=== PATIENT | female | born 1945 | race Two or more races ===

== ENCOUNTER 2025-02-16 11:41 | Emergency (ER) | payer MEDICARE, MEDICAID ==
[~2025-02-16] VITALS: Ht 160 cm; Wt 63.7 kg
--- NOTE | 2025-02-16 12:22 | ED.PDOC ---
Musculoskeletal HPI Comments HPI: Poor Historian. 79-year-old female presents to emergency department by ambulance from home for evaluation of acute and chronic knee pain. Patient has chronic bilateral knee pain. Patient today while doing house chores she has a sudden left knee pain and was unable to ambulate secondary to pain. Denies any fall or trauma or injury today. Denies any other focal neurological deficits. Past Medical History: HTN, Anxiety Past Surgical History: Denies REVIEW OF SYSTEMS: CONSTITUTIONAL: Denies acute: fever, diaphoresis, chills, generalized weakness. HEAD: Denies acute: headache, photophobia Eyes: Denies acute: Double vision, vision loss, eye pain, eye discharge. EARS: Denies acute: tinnitus, hearing loss, ear discharge, ear pain, THROAT: Denies acute: sore throat, swelling, difficulty swallowing , pain with swallowing, change in voice. NECK: Denies acute: neck pain, neck swelling, stiff neck. HEART: Denies acute : chest pain, palpitations, LUNGS: Denies acute: SOB, wheezing, cough, hemoptysis ABDOMEN: Denies acute: abdominal pain, Nausea, Vomiting, diarrhea, melena , hematemesis, hematochezia SKIN: Denies acute: rash, redness, lesions, itchiness. EXTREMITIES: Denies acute: calf pain, numbness, tingling, weakness, Denies acute: Low back pain. Neuro: Denies acute: focal neurological deficit, motor or sensory focal neurological deficit, tremors, seizure like activity, confusion, dizziness, change in mental status, loss of bowel or bladder function, cauda equina like symptoms. : Denies acute: dysuria, hematuria, flank pain, increase in urinary frequency. PSYCH: Denies acute: hallucination, suicidal ideation, homicidal ideation. FEMALE: Denies acute: abnormal vaginal bleeding, foul odor, unusual discharge. PHYSICAL EXAM: General: no acute distress, awake and alert. Head: normocephalic, atraumatic. Neck: supple, trachea is midline, no swelling. Throat: Normal phonation. Eyes:, no erythema, no purulent discharge, no proptosis, no icterus. Heart: regular rate, regular rhythm, no significant murmur appreciated. Lungs: no apparent respiratory distress, Able to speak in full sentences. No wheezing, no rhonchi, no crackles. No stridors Clear to auscultation bilaterally. Abdomen: non tender to palpation, non distended, soft, no guarding, no rebound, + bowel sounds. Neuro: Awake, Alert, oriented to name, self, situation, follows commands GCS=15. Speech is normal. Skin: no petechia, no purpura, no cyanosis, non-pale, not jaundice. Lower extremities: --no - Pitting edema no deformity, no focal swelling, no calf TTP. Evaluation of the left knee of the area of complaint. There is noted baseline swelling that patient states that is normal for her. Patient has limited range of motion of the left knee secondary to pain. Patient is neurovascularly intact in the affected extremity. Makes eye contact. moves all four extremities. Face: no apparent facial droop. ED COURSE: Chief Complaint: Lower Extremity Time Seen by MD: 12:21 Reviewed Notes: Nurses Notes, Medications, Allergies Allergies: Coded Allergies: NO KNOWN ALLERGIES (Unverified , 02/16/25) Information Source: Patient, Emergency Med Personnel Mode of Arrival: EMS Location: Left Was a procedure done? Was a procedure done?: No Differential Diagnosis EXT Differential Diagnosis: Cellulitis, CHF, Deep Vein Thrombosis, Compartment Syndrome, Fracture, Sprain, Dislocation, Laceration, Gout, DJD, Myocardial Infarction, Contusion, Strain, Rheumatoid, Septic, Hernia, Neurovascular injury, Arthritis, Bursitis, Other (Joint effusion) X-Ray, Labs, Meds, VS Vital Signs Date Time Temp Pulse Resp B/P (MAP) Pulse Ox O2 Delivery O2 Flow Rate FiO2 02/16/25 15:39 97.6 63 16 122/83 (96) 97 97.6 02/16/25 12:45 63 16 97 Room Air* 0 21 02/16/25 12:45 98.1 63 16 143/83 (103) 97 98.1 02/16/25 11:46 98.6 86 16 112/86 (95) 100 98.6 Current Medications Medications (Trade) Dose Ordered Sig/Katey Route Start Time Stop Time Status Last Admin Acetaminophen/ Hydrocodone Bitart ([facility] 5/325MG Tab) 1 tab ONCE ONCE PO 02/16/25 13:30 02/16/25 13:31 DC 02/16/25 13:30 PATIENT: TITUS BENTONACCT: [id number]: [id number] : 1945 LOC: ER ROOM / BED: / AGE / SEX: 79 / F ADM STATUS: REG ER SERVICE 1222 ORDERING PHYSICIAN: MALA CALDERON DO PROCEDURE(s): LKNE4 - L KNEE 4V XRAY REASON: ORDER NUMBER(s): [id number], ACCESSION NUMBER(s): [id number] EXAM: XY L KNEE 4V XRAY CLINICAL INDICATION: pain TECHNIQUE: XY L KNEE 4V XRAY Comparison: None FINDINGS/IMPRESSION: There is no evidence of acute fracture or dislocation. Moderate tricompartmental joint space narrowing. Chondrocalcinosis. The alignment is anatomical. There is no radiopaque foreign body. ATED BY: REN SOW MD DICTATED DATE/TIME: 02/16/25 1303 SIGNED BY: REN SOW MD SIGNED DATE/TIME: 02/16/25 1303 Time of 1ST Reevaluation: 12:52 Reevaluation 1ST: Unchanged Patient Education/Counseling: Diagnosis, Treatment Family Education/Counseling: No Family Present Comments Patient presented with the above HPI.--knee pain----workup was initiated. patient was found with the above mentioned diagnosis. the following medications were ordered: please refer to order lists of meds and tests obtained by myself Dr. Calderon. Patient ED course and VS have been stabilized. Patient has been reassessed in the ED and remained in a stable condition. Pertinent incidental findings were discussed with the patient and/or family. Patient/family voices understanding and is agreeable with plan. Patient has been observed in the ED adequate length of time to insure improvement/stability. Escalation of care considered: Consideration of escalation to observation or admission Patient was DISCHARGED home in a stable condition. All the reports of any imaging studies that were ordered by myself were reviewed by myself. Departure 1 Departure Time of Disposition: 14:53 Impression: Primary Impression: Left knee pain Disposition: 01 HOME / SELF CARE / HOMELESS Condition: Stable Additional Instructions: Additional discharge instructions: You MUST follow-up with your primary care/family doctor in 1 to 2 days. If you are unable to see your primary care/family doctor, please return to our emergency room for re-assessment and re-evaluation in 1 to 2 days. Return to the emergency room here in our facility or to the nearest ER [facility] if your symptoms change or worsen. CONSULTATIONS: you MUST Follow-up for consultation as soon as possible with: -orthopedic doctor in 1-2 days. Please call for appointment You MUST call the consultants office yourself to make an appointment. You may need to arrange that through your insurance and/or your primary/family doctor. If you are unable to see the research consultant in 1 to 2 days, you must return to our emergency room (or any other ER of your choice) for re-assessment and re- evaluation. Adequate fluid hydration. Below is a copy of your radiological report for follow up: PATIENT: TITUS BENTON ACCT: [id number] UNIT: [id number] : 1945 LOC: ER ROOM / BED: / AGE / SEX: 79 / F ADM STATUS: REG ER SERVICE 1222 ORDERING PHYSICIAN: MALA CALDERON DO PROCEDURE(s): LKNE4 - L KNEE 4V XRAY REASON: ORDER NUMBER(s): [id number], ACCESSION NUMBER(s): [id number] EXAM: XY L KNEE 4V XRAY CLINICAL INDICATION: pain TECHNIQUE: XY L KNEE 4V XRAY Comparison: None FINDINGS/IMPRESSION: There is no evidence of acute fracture or dislocation. Moderate tricompartmental joint space narrowing. Chondrocalcinosis. The alignment is anatomical. There is no radiopaque foreign body. ATED BY: REN SOW MD DICTATED DATE/TIME: 02/16/25 1303 SIGNED BY: REN SOW MD SIGNED DATE/TIME: 02/16/25 1303 Discharged With: Self Critical Care Note Critical Care Time?: No I personally scribed for MALA CALDERON DO ([email or web address]) on 02/16/25 at 12:22. Electronically submitted by Abrahan Kilgore ([email or web address]). I personally scribed for MALA CALDERON DO ([email or web address]) on 02/16/25 at 13:14. Electronically submitted by Abrahan Kilgore ([email or web address]). I personally scribed for MALA CALDERON DO ([email or web address]) on 02/16/25 at 15:17. Electronically submitted by Abrahan Kilgore ([email or web address]). I personally scribed for MALA CALDERON DO ([email or web address]) on 02/16/25 at 15:26. Electronically submitted by Abrahan Kilgore ([email or web address]). MALA CALDERON DO Feb 16, 2025 12:22
[2025-02-16 12:45] VITALS: PULSE 63; RESP 16; O2SAT 97
--- NOTE | 2025-02-16 13:05 | DVH ---
EXAM: XY L KNEE 4V XRAY CLINICAL INDICATION: pain TECHNIQUE: XY L KNEE 4V XRAY Comparison: None FINDINGS/IMPRESSION: There is no evidence of acute fracture or dislocation. Moderate tricompartmental joint space narrowing. Chondrocalcinosis. The alignment is anatomical. There is no radiopaque foreign body.
[2025-02-16] MEDS: HYDROcodone-ACET 5/325MG TAB PO ONE (13:30)
[2025-02-16 15:39] VITALS: BP 122/83; PULSE 63; RESP 16; TEMP 97.6; O2SAT 97
== END 2025-02-16 15:39 | disposition home or self-care (01) ==
LOC: EDBD 11:41 → ER 11:46
DX: M25.562 Pain in left knee (principal); I10 Essential (primary) hypertension
CPT/HCPCS: 73564